=== PATIENT | female | born 1980 | race Caucasian/White ===

== ENCOUNTER 2018-06-12 16:12 | Emergency (ER) | payer OTHER, SELFPAY ==
--- NOTE | 2018-06-12 16:17 | DI.RAD.S_ITS ---
PROCEDURE: XR KNEE RT 3V INDICATIONS: pain, injury TECHNIQUE: 3 views of the right knee were acquired. COMPARISON: None. FINDINGS: Bones: No fractures or dislocations. No suspicious bony lesions. No significant patellar subluxation. Soft tissues: No joint effusion. No suspicious soft tissue calcifications. Soft tissue swelling over anterior aspect of proximal tibial shaft is seen. IMPRESSION: No gross acute fracture or dislocation. Anterior right knee soft tissue swelling. Dictated by: Alonso Flores M.D. on 06/12/2018 at 16:33 Approved by: Alonso Flores M.D. on 06/12/2018 at 16:35
[2018-06-12 17:40] VITALS: BP 140/71; PULSE 80; RESP 14; TEMP 36.8; O2SAT 100
--- NOTE | 2018-06-12 17:40 | PC.NURSE ---
Done from lobby
--- NOTE | 2018-06-12 18:07 | ED_ITS ---
HPI - Extremity Injury (Lower) <ELLIE Rowland - Last Filed: 06/12/18 20:57> General Chief Complaint: Extremity Injury, Lower Stated Complaint: RT KNEE INJURY Time Seen by Provider: 06/12/18 18:00 Source: patient Mode of arrival: ambulatory Limitations: no limitations History of Present Illness HPI Narrative: Patient presents with chief complaint of right knee pain after slipping this shower yesterday. She did not fall, but states her right knee twisted in. She felt a pop. She denies any numbness or tingling at this point time. She does complain of some pain with ambulation only. She works on the [employer] and thinks that being on her feet all day his worsening her pain. She does complain of some instability. Has used some ice taken [id number] pain medication. She has never hurt this knee before. Related Data Allergies Allergy/AdvReac Type Severity Reaction Status Date / Time No Known Drug Allergies Allergy Verified 06/12/18 16:17 Review of Systems <ELLIE Rowland - Last Filed: 06/12/18 20:57> Review of Systems GENERAL: Denies chills, fatigue, malaise, fever, sweats. HEENT: Denies sinus pain, ear pain, sore throat, difficulty swallowing, dizziness. RESPIRATORY: Denies dyspnea, cough, wheezing, hemoptysis, sputum. CARDIOVASCULAR: Denies chest pain, palpitations, orthopnea, edema, GASTROINTESTINAL: Denies nausea, vomiting, abdominal pain, diarrhea, constipation, melena. : Denies dysuria, frequency, incontinence, hematuria, urinary retention. MUSCULOSKELETAL: See HPI SKIN: Denies rash, skin lesions, or other NEUROLOGIC: Denies weakness, headache, numbness, change in speech, confusion, seizures, incoordination. PSYCHIATRIC: No concerning psychosocial issues. 12 point review of systems is negative except for those stated above Exam <ELLIE Rowland - Last Filed: 06/12/18 20:57> Narrative Exam Narrative: GENERAL: This is a well-nourished, well-developed patient, in mild distress. HEAD: Atraumatic. Normocephalic. No temporal or scalp tenderness. EYES: Pupils equal round and reactive. Extraocular motions intact. No scleral icterus. No injection or drainage. ENT: Nose without bleeding, purulent drainage or septal hematoma. Throat without erythema, tonsillar hypertrophy or exudate. Uvula midline. Airway patent. NECK: Trachea midline. No JVD or lymphadenopathy. Supple, nontender, no meningeal signs. CARDIOVASCULAR: Regular rate and rhythm without murmurs, gallops, or rubs. RESPIRATORY: Clear to auscultation. Breath sounds equal bilaterally. No wheezes , rales, or rhonchi. GASTROINTESTINAL: Abdomen soft, non-tender, nondistended. No hepato-splenomegaly , or palpable masses. No guarding. EXTREMITIES: Right knee generalized pain to palpation. No effusion noted. Right knee has negative varus and valgus stress test, negative anterior drawer negative posterior drawer test. Right knee has negative Dao sign. Does have some pain on palpation distal to right patella. Patient is able to lift and then right knee. Positive pedal pulses right foot. BACK: Nontender without deformity or crepitance. No flank tenderness. NEURO: AOx3. SKIN: No rash or erythema. No erythema ecchymosis or wounds noted right knee. Initial Vital Signs Initial Vital Signs: Vital Signs Temperature 98.2 F 06/12/18 17:40 Pulse Rate 80 06/12/18 17:40 Respiratory Rate 14 06/12/18 17:40 Blood Pressure 140/71 H 06/12/18 17:40 Pulse Oximetry 100 06/12/18 17:40 <Amie Goodwin DO - Last Filed: 06/13/18 04:21> Initial Vital Signs Initial Vital Signs: Vital Signs Temperature 98.2 F 06/12/18 17:40 Pulse Rate 80 06/12/18 17:40 Respiratory Rate 14 06/12/18 17:40 Blood Pressure 140/71 H 06/12/18 17:40 Pulse Oximetry 100 06/12/18 17:40 Course <ELLIE Rowland - Last Filed: 06/12/18 20:57> Orders Ordered: ED Orders 06/12/18 16:17 XR knee RT 3V Stat Vital Signs - 8 hr 06/12/18 17:40 06/12/18 18:12 06/12/18 18:36 Temperature 98.2 F Pulse Rate 80 77 83 Respiratory Rate 14 14 16 Blood Pressure 148/78 H Blood Pressure [Left Arm] 140/71 H 148/78 H Pulse Oximetry 100 100 99 <Amie Goodwin DO - Last Filed: 06/13/18 04:21> Orders Ordered: ED Orders 06/12/18 16:17 XR knee RT 3V Stat Vital Signs - 8 hr 06/12/18 17:40 06/12/18 18:12 06/12/18 18:36 Temperature 98.2 F Pulse Rate 80 77 83 Respiratory Rate 14 14 16 Blood Pressure 148/78 H Blood Pressure [Left Arm] 140/71 H 148/78 H Pulse Oximetry 100 100 99 [facility] - Extremity Injury (Lower) <ELLIE Rowland - Last Filed: 06/12/18 20:57> Imaging Data right knee xray: Radiologist's impression: [address] [address] XRay Report Signed Patient: Cristela Myers MR#: [id number] : 1980 Acct:[id number] Age/Sex: 37 / F Date of Service: 06/12/18 Loc: ED Accession Number: [id number] Procedure: XR knee RT 3V Ordering Provider: Olimpia Guerrero PROCEDURE: XR KNEE RT 3V INDICATIONS: pain, injury TECHNIQUE: 3 views of the right knee were acquired. COMPARISON: None. FINDINGS: Bones: No fractures or dislocations. No suspicious bony lesions. No significant patellar subluxation. Soft tissues: No joint effusion. No suspicious soft tissue calcifications. Soft tissue swelling over anterior aspect of proximal tibial shaft is seen. IMPRESSION: No gross acute fracture or dislocation. Anterior right knee soft tissue swelling. Dictated by: Alonso Flores M.D. on 06/12/2018 at 16:33 Approved by: Alonso Flores M.D. on 06/12/2018 at 16:35 [facility] Narrative Medical decision making narrative: Patient presents with chief complaint of right knee pain. X-rays negative for fracture. Patient has benign exam but possible strain or sprain given her mechanism. Offered orthopedic referral at this time, but patient declined. States she would try rest ice compression elevation combined with kdge-gsk-[id number] pain medications for a few days and follow up with her primary care if worsening or no improvement. Discussed being seen if noted numbness and tingling in the foot. Patient no questions or concerns upon discharge. She was given a work note given that her job is on her feet. Patient also declined knee immobilizer at this point time and states that she would use an Jim wrap or knee sleeve instead. Discharge Plan Departure Patient Disposition: Home, Self-Care Clinical Impression: Acute pain of right knee Discharge Date/Time: 06/12/18 18:36 Interventions: ED Discharge Assessment Last Done: 06/12/18 18:36 Instructions: How To Perform RICE (Rest, Ice, Compress, Elevate), DI for Knee Pain Activity Restrictions/Additional Instructions: Your x-ray came back negative for any acute fracture. I suggest rest, ice compression and elevation along with oskt-wvx-cyvgtvy medications as needed for pain. Follow up with primary care provider if new or worsening symptoms or no improvement. You may need further imaging, and orthopedic referral or physical therapy. Referrals: Cristela Naranjo ARNP [Primary Care Provider] - <Amie Goodwin DO - Last Filed: 06/13/18 04:21> Cosign ED Attending Antonio Attestation: I was immediately available in the department for consultation. Documentation has been reviewed. I agree with assessment and plan.
[2018-06-12 18:12] VITALS: BP 148/78; PULSE 77; RESP 14; O2SAT 100
[2018-06-12 18:36] VITALS: BP 148/78; PULSE 83; RESP 16; O2SAT 99
== END 2018-06-12 18:36 | disposition home or self-care (01) ==
PROVIDERS: Emergency Provider Nurse Practitioner Family; Family Provider Nurse Practitioner Family; PCP Nurse Practitioner Family
DX: M25.561 Pain in right knee (principal)
CPT/HCPCS: 73562; 99282; 99283

== ENCOUNTER → 2018-09-01 09:46 | Outpatient (CLI) | payer OTHER, SELFPAY ==
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
== END ==
PROVIDERS: PCP Nurse Practitioner Family; Visit Provider Nurse Practitioner Family
DX: M79.9 Soft tissue disorder, unspecified (principal)
CPT/HCPCS: 76604

== ENCOUNTER 2019-12-10 20:05 | Emergency (ER) | payer OTHER, SELFPAY ==
[2019-12-10 20:18] VITALS: BP 181/108; PULSE 94; RESP 16; TEMP 36.9; O2SAT 100
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
[2019-12-10 23:20] VITALS: BP 181/90; PULSE 88; RESP 17; O2SAT 99
== END 2019-12-10 23:20 | disposition home or self-care (01) ==
PROVIDERS: Emergency Provider Emergency Medicine; PCP Nurse Practitioner Family
DX: S92.424A Nondisplaced fracture of distal phalanx of right great toe, initial encounter for closed fracture (principal); V03.10XA Pedestrian on foot injured in collision with car, pick-up truck or van in traffic accident, initial encounter; Y99.0 Civilian activity done for income or pay
CPT/HCPCS: 73660; 99283

== ENCOUNTER → 2020-11-28 11:10 | Outpatient (CLI) | payer OTHER, SELFPAY ==
[2020-11-28 11:54] LABS: COVID19 -Nasal RAPID POSITIVE (Negative)
== END ==
PROVIDERS: PCP Nurse Practitioner Family; Visit Provider Physician Assistant
DX: U07.1 COVID-19 (principal)
CPT/HCPCS: 87635

== ENCOUNTER → 2021-01-31 12:47 | Outpatient (CLI) | payer OTHER, SELFPAY ==
[2021-01-31] MEDS: COVID-19 VACC #1, MRNA(MOD) 100 MCG/0.5 ML VIAL IM (13:00)
== END ==
PROVIDERS: PCP Nurse Practitioner Family; Visit Provider Internal Medicine
DX: Z23 Encounter for immunization (principal)
CPT/HCPCS: 0011A; 91301

== ENCOUNTER → 2021-03-01 12:57 | Outpatient (CLI) | payer OTHER, SELFPAY ==
[2021-03-01] MEDS: COVID-19 VACC #2, MRNA(MOD) 100 MCG/0.5 ML VIAL IM (13:10)
== END ==
PROVIDERS: PCP Nurse Practitioner Family; Visit Provider Internal Medicine
DX: Z23 Encounter for immunization (principal)
CPT/HCPCS: 0012A; 91301

== ENCOUNTER → 2021-10-18 12:37 | Outpatient (CLI) | payer OTHER, SELFPAY ==
[2021-10-18 13:11] LABS: Add Manual Diff / Slide Review NO; Basophils Absolute Auto 0 /uL (0-100); Basophils Percent Auto 0.4 % (0-2); Eosinophils Absolute Auto 100 /uL (0-450); Eosinophils Percent Auto 1.4 % (2-4); Hematocrit 38.5 % (36-46); Lymphocytes Absolute Auto 1400 /uL (1100-4500); Lymphocytes Percent Auto 25.6 % (25-40); Mean Corpuscular HGB Conc 33.7 % (30-36); Mean Corpuscular Hemoglobin 26.4 PG (26-34); Mean Corpuscular Volume 78.5 fL (80-100); Monocytes Absolute Auto 400 /uL (0-900); Monocytes Percent Auto 7.1 % (3-14); Neutrophils Absolute Auto 3600 /uL (1500-7000); Neutrophils Percent Auto 65.5 % (50-75); Platelet Count 206 X10^3/uL (150-400); Red Cell Distribution Width 15.2 % (11.6-14.8); White Blood Cell Count 5.5 X10^3/uL (4.5-11.0)
[2021-10-18 13:42] LABS: Erythrocyte Sedimentation Rate 6 MM/HR (0-20)
[2021-10-18 14:40] LABS: Alanine Aminotransferase 25 IU/L (<35); Albumin 4.5 g/dL (3.5-5.0); Albumin Globulin Ratio 1.6 (1.0-2.8); Alkaline Phosphatase 60 U/L (38-126); Aspartate Aminotransferase 27 IU/L (14-36); BUN Creatinine Ratio 17.1 (6-22); Bilirubin Total 0.7 mg/dL (0.2-1.3); Blood Urea Nitrogen 12 mg/dL (7-17); C-Reactive Protein Quant < 0.5 mg/dL (<1.0); Calcium 9.6 mg/dL (8.4-10.2); Carbon Dioxide 26 mmol/L (22-32); Chloride 105 mmol/L (98-107); Estimated Glomerular Filt Rate > 60.0 mL/min (>60); Globulin 2.9 g/dL (1.7-4.1); Glucose 89 mg/dL (70-100); HEMOLYSIS < 15 (0-50); Potassium 4.5 mmol/L (3.4-5.1); Sodium 140 mmol/L (137-145); Total Protein 7.4 g/dL (6.3-8.2)
[2021-10-18 14:41] LABS: Rheumatoid Factor < 8.6 IU/mL (<12.0)
[2021-10-20 16:52] LABS: ANA Screen, IFA Negative (.)
== END ==
PROVIDERS: PCP Physician Assistant; Referring Provider Physician Assistant; Visit Provider Physician Assistant
DX: R06.02 Shortness of breath (principal); M25.549 Pain in joints of unspecified hand
CPT/HCPCS: 36415; 80053; 85025; 85651; 86038; 86140; 86430

== ENCOUNTER → 2021-11-30 08:54 | Outpatient (CLI) | payer OTHER, SELFPAY ==
--- NOTE | 2021-11-30 | DI.ECHO.S_ITS ---
[place] [facility]---------+ [facility] +---------+ : : [address] : : : : [id number] : : : : Phone: [phone]+ Echocardiogram Report + + :Name: JESSICA NEWMAN Study Date: 11/30/2021 Height: 67 in : :[facility] ReadingLocation: Weight: 280 lb : : Gender: Female BSA: 2.3 m2 : :: 1980 Age: 41 yrs BP: 140/90 mmHg: :Reason For Study: Dyspnea : :Ordering Physician: : :SASHA Performed By: Prasanna Go : :Referring: VELMA AHN : + + Interpretation Summary The study quality was technically difficult. The ejection fraction is estimated to be 60-65%. Diastolic parameters suggest probable normal left ventricular diastolic function and normal filling pressures. The right ventricle is normal in size and function. No significant valvular abnormalities. Unable to estimate PASP. Procedure: A two-dimensional transthoracic echocardiogram with color flow and Doppler was performed. There is no prior echocardiogram noted for this patient. The subcostal views were difficult to obtain and are suboptimal in quality. The study quality was technically difficult. The patient was in normal sinus rhythm during the exam. Left Ventricle: The left ventricle is normal in size. There is borderline concentric left ventricular hypertrophy. Left ventricular systolic function is normal. The ejection fraction is estimated to be 60-65%. Regional wall motion abnormalities cannot be excluded due to limited visualization. Diastolic parameters suggest probable normal left ventricular diastolic function and normal filling pressures. Right Ventricle: The right ventricle is normal in size and function. Atria: Both atria are normal in size. There is no Doppler evidence for an interatrial shunt. Mitral Valve: The mitral valve leaflets appear borderline thickened, but open well. There is no mitral regurgitation noted. Aortic Valve: The aortic valve opens well. There is no aortic valve stenosis. No aortic regurgitation is present. Tricuspid Valve: The tricuspid valve is normal. There is a trace or physiologic amount of tricuspid regurgitation. Pulmonary artery pressures cannot be estimated because of the lack of a measurable TR jet velocity. Pulmonic Valve: The pulmonic valve is normal in structure and function. Great Vessels: The aortic root is normal size. The ascending aorta is normal in size. The aortic arch is normal in size. IVC not clearly visualized, but is probably normal. Pericardium/ Pleura There is no pericardial effusion. There is an anterior echo-free space consistent with a fat pad. There is no pleural effusion. MMode/2D Measurements & Calculations LVIDd: 4.0 cm LVOT diam: 1.7 cm LVIDs: 2.7 cm Ao root diam: 2.6 cm FS: 32.5 % asc Aorta Diam: 2.6 cm IVSd: 1.0 cm Ao Arch Diam (Prox Trans): 2.3 cm LVPWd: 1.0 cm LV coleman. diameter/BSA (cm/m^2): 1.7 LV sys. diameter/BSA (cm/m^2): 1.2 LA A2 area: 17.4 cm2 RA long axis: 5.0 cm LA A4 area: 22.8 cm2 LA length (vol): 5.7 cm LA vol: 59.3 ml LA vol index: 25.4 ml/m2 TAPSE_phl: 2.5 cm Doppler Measurements & Calculations Ao V2 max: 116.0 cm/sec LVOT Max Madi: 103.0 cm/sec Ao V2 mean: 90.0 cm/sec LV V1 max P.2 mmHg Ao max P.0 mmHg LV V1 VTI: 20.7 cm Ao mean P.0 mmHg JARRED(I,D): 1.8 cm2 Ao V2 VTI: 26.4 cm JARRED(V,D): 2.0 cm2 sev ratio: 0.78 JARRED indexed to BSA (cm^2/m^2): 0.76 MV E max madi: 84.4 cm/sec PA V2 max: 87.5 cm/sec MV A max madi: 54.0 cm/sec PA V2 mean: 60.5 cm/sec MV E/A: 1.6 PA mean P.0 mmHg Med Peak E' Madi: 8.2 cm/sec PA pr(Accel): 23.6 mmHg E/E' med: 10.3 Lat Peak E' Madi: 12.6 cm/sec E/E' lat: 6.7 E/e' average: 8.5 MV dec time: 0.19 sec SV(LVOT): 47.0 ml AV VR_phl: 0.89 JARRED(VTI)/BSA_phl: 0.76 MV P1/2t-pr_phl: 56.0 msec Reading Physician:12:29 PM
== END ==
PROVIDERS: PCP Physician Assistant; Referring Provider Physician Assistant; Visit Provider Physician Assistant
DX: R06.09 Other forms of dyspnea (principal)
CPT/HCPCS: 93306

== ENCOUNTER → 2021-12-05 11:00 | Outpatient (CLI) | payer OTHER, SELFPAY ==
--- NOTE | 2021-12-05 | DI.CT.S_ITS ---
PROCEDURE: CT ANGIO CHEST INDICATIONS: Shortness of breath TECHNIQUE: After the administration of intravenous contrast, 2 mm thick sections acquired from the pulmonary apices to the posterior costophrenic angles. 3-dimensional maximum intensity projection (MIP) coronal and sagittal reformats were then acquired through the thorax. For radiation dose reduction, the following was used: automated exposure control, adjustment of mA and/or kV according to patient size. COMPARISON: [facility], , CHEST, 09/01/2018, 10:05. FINDINGS: Image quality: Excellent. Pulmonary arteries: Pulmonary arteries are normal in size, and demonstrate no intraluminal filling defects to suggest central pulmonary embolism. Lungs and pleura: Lungs are clear. No pleural effusions or pneumothorax. Central and peripheral airways are patent. Mediastinum: Heart size is normal, without pericardial effusion. No mediastinal or hilar adenopathy. Thoracic aorta is normal in caliber and enhancement. Esophagus is normal in caliber, without hiatal hernia. Bones and chest wall: No suspicious bony lesions. Ribs and thoracic spine appear intact throughout. Thyroid gland is normal. No axillary or supraclavicular adenopathy. Abdomen: Visualized upper abdominal solid organs appear normal in the early arterial phase of enhancement. IMPRESSION: 1. No evidence for pulmonary embolism. 2. No acute cardiopulmonary process. Dictated by: Dorothy Mendoza M.D. on 12/05/2021 at 12:22 Approved by: Dorothy Mendoza M.D. on 12/05/2021 at 12:25
== END ==
PROVIDERS: PCP Physician Assistant; Referring Provider Physician Assistant; Visit Provider Physician Assistant
DX: R06.02 Shortness of breath (principal)
CPT/HCPCS: 71275

== ENCOUNTER 2021-12-25 00:45 | Emergency (ER) | payer OTHER, SELFPAY ==
[2021-12-25 00:48] VITALS: BP 193/111; PULSE 101; RESP 16; TEMP 36.3; O2SAT 100; BMI 43.8
--- NOTE | 2021-12-25 01:13 | ED_ITS ---
HPI - General Adult General Chief complaint: Urogenital-Female Stated complaint: kidney pain Time Seen by Provider: 12/25/21 01:02 Source: patient Mode of arrival: Ambulatory History of Present Illness HPI narrative: 41-year-old female here for evaluation of left-sided kidney pain. She states that the symptoms started rather suddenly several hours ago. Has been consistent since then. No nausea vomiting. One time had dysuria and frequency and urgency but that seems to have resolved. No change in bowel habits. She has had a kidney stone in the past but this feels somewhat different to that. No fevers. Took some ibuprofen prior to arrival without any improvement. No rashes. She states that the pain does not get worse when you touch it does get worse when she moves. Related Data Allergies Allergy/AdvReac Type Severity Reaction Status Date / Time No Known Drug Allergies Allergy Verified 12/10/19 20:22 Review of Systems Constitutional Constitutional: Reports system reviewed and no additional complaints, except as documented Cardiovascular Cardiovascular: Reports system reviewed and no additional complaints, except as documented Respiratory Respiratory: Reports system reviewed and no additional complaints, except as documented Gastrointestinal Gastrointestinal: Reports as per HPI and Reports system reviewed and no additi onal complaints, except as documented Genitourinary Genitourinary: Reports system reviewed and no additional complaints, except as documented Integumentary/Breasts Skin/Breast: Reports system reviewed and no additional complaints, except as documented Neurologic Neurologic: Reports system reviewed and no additional complaints, except as documented Hematologic/Lymphatic On Anticoagulants: No Patient History Medical History Calculus of left kidney Family History Mother Hypertension Diabetes mellitus Grandmother Ovarian cancer Father Hypertension Social History marital status: household members: spouse occupational status: employed Smoking Status: Never smoker alcohol intake: current substance use type: does not use Smoking Status: Never smoker alcohol intake frequency: holidays/special occasions only Substance Use Type: does not use Exam Initial Vital Signs Initial Vital Signs: Vital Signs Temperature 97.4 F L 12/25/21 00:48 Pulse Rate 101 H 12/25/21 00:48 Respiratory Rate 16 12/25/21 00:48 Blood Pressure 193/111 H 12/25/21 00:48 Pulse Oximetry 100 12/25/21 00:48 Const General: cooperative, comfortable and well developed HENMT Head: normal to inspection and normocephalic Resp Effort & Inspection: normal respiratory effort Auscultation: clear to auscultation bilaterally Cardio Rate: regular rate Rhythm: regular rhythm GI Inspection: normal to inspection Back/Spine/Pelvis Back: No CVA tenderness Skin General: no rashes or lesions noted Lesions: no lesions Neuro General: patient alert, patient awake and moves all extremities Extrem General: normal to inspection and capillary refill normal Psych Appearance: grossly normal and well kempt Course Orders Ordered: ED Orders 12/25/21 01:14 CT kidney ureter bladder (KUB) Stat 12/25/21 01:30 Basic Metabolic Panel Stat Complete Blood Count AUTO DIFF Stat 12/25/21 01:44 Urine Culture Stat Urine Microscopic Stat Sodium Chloride (Normal Saline 0.9%) 1,000 mls @ 500 mls/hr IV BOLUS ONE Stop: 12/25/21 03:13 Last Admin: 12/25/21 01:23 Dose: 500 mls/hr Documented by: IRINA Discontinued Medications Ketorolac Tromethamine (Ketorolac 30 Mg/Ml Vial) 30 mg IV NOW ONE Stop: 12/25/21 01:15 Last Admin: 12/25/21 01:22 Dose: 30 mg Documented by: IRINA Vital Signs Vital signs: Vital Signs - 8 hr 12/25/21 00:48 Temperature 97.4 F L Pulse Rate 101 H Respiratory Rate 16 Blood Pressure 193/111 H Pulse Oximetry 100 Medical Decision Making Lab Data Lab results reviewed: Yes I reviewed the patient's lab results. Result diagrams: 12/25/21 01:30 12/25/21 01:30 Labs: Lab Results 12/25/21 12/25/21 12/25/21 Range/Units 01:30 01:30 01:44 WBC 8.4 (4.5-11.0) X10^3/uL RBC 4.76 (4.0-5.2) X10^6/uL Hgb 12.8 (12.0-16.0) g/dL Hct 37.5 (36-46) % MCV 78.7 L (80-100) fL MCH 26.8 (26-34) PG MCHC 34.1 (30-36) % RDW 14.4 (11.6-14.8) % Plt Count 239 (150-400) X10^3/uL Neut % (Auto) 67.6 (50-75) % Lymph % (Auto) 23.4 L (25-40) % [place] % (Auto) 7.1 (3-14) % Eos % (Auto) 1.5 L (2-4) % Baso % (Auto) 0.4 (0-2) % Neut # (Auto) 5700 (5442-6953) /uL Lymph # (Auto) 2000 (8296-1270) /uL [place] # (Auto) 600 (0-900) /uL Eos # (Auto) 100 (0-450) /uL Baso # (Auto) 0 (0-100) /uL Sodium 136 L (137-145) mmol/L Potassium 3.7 (3.4-5.1) mmol/L Chloride 106 (98-107) mmol/L Carbon Dioxide 24 (22-32) mmol/L BUN 13 (7-17) mg/dL Creatinine 0.77 (0.52-1.04) mg/dL Estimated GFR > 60.0 (>60) mL/min BUN/Creatinine Ratio 16.9 (6-22) Glucose 95 (70-100) mg/dL Calcium 9.7 (8.4-10.2) mg/dL Urine RBC None seen (0-5/HPF) Urine WBC None seen (0-5/HPF) Ur Squamous Epith Cells 1-5 /hpf (0-5/HPF) Urine Bacteria None seen (None) Ur Culture Indicated? Culture not indicate Micro UA Comment * Urine Dip Bedside Urine Glucose Negative Bedside Urine Bilirubin - Negative Bedside Urine Ketone - Negative Urine Specific [place] 1.015 Bedside Urine Occult Blood +/- Bedside Urine pH 6.0 Bedside Urine Protein - Negative Bedside Urine Urobilinogen - Negative Bedside Urine Nitrite - Negative Bedside Urine Leukocytes - Negative Esterase Point of care testing: Urine Dip Bedside Urine Glucose Negative Bedside Urine Bilirubin - Negative Bedside Urine Ketone - Negative Urine Specific [place] 1.015 Bedside Urine Occult Blood +/- Bedside Urine pH 6.0 Bedside Urine Protein - Negative Bedside Urine Urobilinogen - Negative Bedside Urine Nitrite - Negative Bedside Urine Leukocytes - Negative Esterase Imaging Data CT scan - abdomen/pelvis: Radiologist's Impression: [address] [address] [address] Scan Report Signed Patient: Cristela Myers MR#: [id number] : 1980 Acct:[id number] Age/Sex: 41 / F Date of Service: 12/25/21 Loc: ED Accession Number: [id number] ?? Procedure: CT kidney ureter bladder (KUB) Ordering Provider: Angelo Mcneill D.O. PROCEDURE:? CT KIDNEY URETER BLADDER (KUB) ? INDICATIONS:? Left sided flank pain eval for stone ? TECHNIQUE:? Axial sections were acquired from the lung bases to the pubic symphysis.? Coronal and sagittal reformats were performed.? For radiation dose reduction, the following was used: ?automated exposure control, adjustment of mA and/or kV according to patient size.? ? COMPARISON:? CT, KIDNEY/ URETER/BLADDER, 03/28/2016, 5:26.? [facility], CT, ABDOMEN/PELVIS WITH CONTRAST, 09/26/2007, 8:10.? [facility], CT, CT ANGIO CHEST, 12/05/2021, 11:57. ? FINDINGS:? Image quality:? Excellent.? ? Lung bases:? Unremarkable.? ? Heart:? No significant findings. ? URINARY: Right Kidney: ? No stones or hydronephrosis.? Right Ureter:? No hydroureter.? ? Left Kidney: ? No stones or hydronephrosis. Left Ureter:? No hydroureter.? ? Bladder:? Normal wall thickness. No stones. ? ? ? ABDOMEN: Liver:? Unremarkable.? ? Gallbladder:? Unremarkable.? ? Biliary ducts:? Unremarkable.? ? Pancreas:? Unremarkable.? ? Spleen:? Unremarkable.? ? Adrenal Glands:? Unremarkable.? ? ? Stomach and Bowel:? Stomach, small bowel loops, and colon are unremarkable.? Diverticulosis without diverticulitis. Peritoneum:? No abnormal intraperitoneal fluid.? No free air.? ? Ventral Wall: ? No hernia.? Abdominal Nodes:? No enlarged retroperitoneal or mesenteric lymph nodes.? Vessels:? Aorta and inferior vena cava are normal in size.? ? PELVIS: Pelvic Organs:? Uterus is normal.? There is air in vagina. ? Ovaries unremarkable.? No pathological free-fluid in the cul-de-sac.? Pelvic Nodes: Unremarkable. Miscellaneous: No inguinal hernias are seen. ? ? ? Bones:? Unremarkable. ? IMPRESSION:? ? 1. No acute abnormalities in abdomen or pelvis.? No renal stone or hydronephrosis. 2. Diverticulosis without diverticulitis.? Dictated by: Dorothy Mendoza M.D. on 12/25/2021 at 2:21 ? ? Approved by: Dorothy Mendoza M.D. on 12/25/2021 at 2:30?? MDM Narrative Medical decision making narrative: CT scan of the abdomen does not show any signs of acute pathology. There is no signs of kidney stone. No signs of bowel obstruction. Her urinalysis is unremarkable. Low suspicion for pyelonephritis. Unsure the exact etiology of patient's symptoms. She does not have any skin changes over the area that are concerning for zoster. No indication for antibiotics. No indication for further workup here in the ER. I did discuss with her the lack of a definitive diagnosis and we discussed return precautions and follow-up instructions. She e xpressed understanding and agreement. Discharge Plan Departure Patient Disposition: Home Clinical Impression: Acute left flank pain Activity Restrictions/Additional Instructions: The CT scan today did not show any signs of a kidney stone or any other surgical or infectious issue. Your labs were also reassuring. Urine did not show any signs of infection. Unfortunately do not have a specific diagnosis for your discomfort but it does not appear to be an emergent condition. This is reassuring. Contact your primary doctor for follow-up and return to the emergency department for any new or worsening symptoms. Referrals: Pat Weir PA-C [Primary Care Provider] -
--- NOTE | 2021-12-25 01:14 | DI.CT.S_ITS ---
PROCEDURE: CT KIDNEY URETER BLADDER (KUB) INDICATIONS: Left sided flank pain eval for stone TECHNIQUE: Axial sections were acquired from the lung bases to the pubic symphysis. Coronal and sagittal reformats were performed. For radiation dose reduction, the following was used: automated exposure control, adjustment of mA and/or kV according to patient size. COMPARISON: CT, KIDNEY/ URETER/BLADDER, 03/28/2016, 5:26. [facility], CT, ABDOMEN/PELVIS WITH CONTRAST, 09/26/2007, 8:10. [facility], CT, CT ANGIO CHEST, 12/05/2021, 11:57. FINDINGS: Image quality: Excellent. Lung bases: Unremarkable. Heart: No significant findings. URINARY: Right Kidney: No stones or hydronephrosis. Right Ureter: No hydroureter. Left Kidney: No stones or hydronephrosis. Left Ureter: No hydroureter. Bladder: Normal wall thickness. No stones. ABDOMEN: Liver: Unremarkable. Gallbladder: Unremarkable. Biliary ducts: Unremarkable. Pancreas: Unremarkable. Spleen: Unremarkable. Adrenal Glands: Unremarkable. Stomach and Bowel: Stomach, small bowel loops, and colon are unremarkable. Diverticulosis without diverticulitis. Peritoneum: No abnormal intraperitoneal fluid. No free air. Ventral Wall: No hernia. Abdominal Nodes: No enlarged retroperitoneal or mesenteric lymph nodes. Vessels: Aorta and inferior vena cava are normal in size. PELVIS: Pelvic Organs: Uterus is normal. There is air in vagina. Ovaries unremarkable. No pathological free-fluid in the cul-de-sac. Pelvic Nodes: Unremarkable. Miscellaneous: No inguinal hernias are seen. Bones: Unremarkable. IMPRESSION: 1. No acute abnormalities in abdomen or pelvis. No renal stone or hydronephrosis. 2. Diverticulosis without diverticulitis. Dictated by: Dorothy Mendoza M.D. on 12/25/2021 at 2:21 Approved by: Dorothy Mendoza M.D. on 12/25/2021 at 2:30
[2021-12-25] MEDS: KETOROLAC 30 MG/ML VIAL IV (01:22)
[2021-12-25] MEDS: SODIUM CHLORIDE 0.9% 1,000 ML 500 ML IV (01:23)
[2021-12-25 01:45] LABS: Add Manual Diff / Slide Review NO; Basophils Absolute Auto 0 /uL (0-100); Basophils Percent Auto 0.4 % (0-2); Eosinophils Absolute Auto 100 /uL (0-450); Eosinophils Percent Auto 1.5 % (2-4); Hematocrit 37.5 % (36-46); Hemoglobin 12.8 g/dL (12.0-16.0); Lymphocytes Absolute Auto 2000 /uL (1100-4500); Lymphocytes Percent Auto 23.4 % (25-40); Mean Corpuscular HGB Conc 34.1 % (30-36); Mean Corpuscular Hemoglobin 26.8 PG (26-34); Mean Corpuscular Volume 78.7 fL (80-100); Monocytes Absolute Auto 600 /uL (0-900); Monocytes Percent Auto 7.1 % (3-14); Neutrophils Absolute Auto 5700 /uL (1500-7000); Neutrophils Percent Auto 67.6 % (50-75); Platelet Count 239 X10^3/uL (150-400); Red Blood Cell Count 4.76 X10^6/uL (4.0-5.2); Red Cell Distribution Width 14.4 % (11.6-14.8); White Blood Cell Count 8.4 X10^3/uL (4.5-11.0)
[2021-12-25 01:50] LABS: BUN Creatinine Ratio 16.9 (6-22); Blood Urea Nitrogen 13 mg/dL (7-17); Calcium 9.7 mg/dL (8.4-10.2); Carbon Dioxide 24 mmol/L (22-32); Chloride 106 mmol/L (98-107); Estimated Glomerular Filt Rate > 60.0 mL/min (>60); Glucose 95 mg/dL (70-100); HEMOLYSIS < 15 (0-50); Potassium 3.7 mmol/L (3.4-5.1); Sodium 136 mmol/L (137-145)
[2021-12-25 02:13] LABS: RBC Urine None Seen (0-5/HPF); Squamous Epithelial Cell Urine 1-5 /HPF (0-5/HPF); WBC Urine None Seen (0-5/HPF)
[2021-12-25 02:14] LABS: Bacteria Urine None Seen
[2021-12-25 03:03] VITALS: BP 142/68; PULSE 80; RESP 16; O2SAT 100
== END 2021-12-25 03:04 | disposition home or self-care (01) ==
PROVIDERS: Emergency Provider Emergency Medicine; PCP Physician Assistant
DX: R10.9 Unspecified abdominal pain (principal)
CPT/HCPCS: 36415; 74176; 80048; 81003; 81015; 85025; 87086; 96361; 96374; 99284; J1885

== ENCOUNTER → 2022-10-11 12:26 | Outpatient (CLI) | payer OTHER, SELFPAY ==
[2022-10-11 12:58] LABS: Add Manual Diff / Slide Review NO; Basophils Absolute Auto 0 /uL (0-100); Basophils Percent Auto 0.3 % (0-2); Eosinophils Absolute Auto 100 /uL (0-450); Eosinophils Percent Auto 0.7 % (2-4); Hematocrit 40.5 % (36-46); Hemoglobin 13.8 g/dL (12.0-16.0); Lymphocytes Absolute Auto 1300 /uL (1100-4500); Lymphocytes Percent Auto 15.2 % (25-40); Mean Corpuscular Hemoglobin 27.1 PG (26-34); Mean Corpuscular Volume 79.8 fL (80-100); Monocytes Absolute Auto 500 /uL (0-900); Monocytes Percent Auto 6.2 % (3-14); Neutrophils Absolute Auto 6500 /uL (1500-7000); Neutrophils Percent Auto 77.6 % (50-75); Platelet Count 231 X10^3/uL (150-400); Red Blood Cell Count 5.08 X10^6/uL (4.0-5.2); Red Cell Distribution Width 13.8 % (11.6-14.8); White Blood Cell Count 8.4 X10^3/uL (4.5-11.0)
[2022-10-11 13:14] LABS: Alanine Aminotransferase 28 IU/L (<35); Albumin 4.4 g/dL (3.5-5.0); Albumin Globulin Ratio 1.4 (1.0-2.8); Alkaline Phosphatase 67 U/L (38-126); Aspartate Aminotransferase 33 IU/L (14-36); BUN Creatinine Ratio 18.6 (6-22); Bilirubin Total 0.8 mg/dL (0.2-1.3); Blood Urea Nitrogen 11 mg/dL (7-17); Calcium 9.1 mg/dL (8.4-10.2); Carbon Dioxide 24 mmol/L (22-32); Chloride 106 mmol/L (98-107); Cholesterol 210 mg/dL (140-199); Estimated Glomerular Filt Rate > 60 mL/min (>60); Globulin 3.2 g/dL (1.7-4.1); Glucose 94 mg/dL (70-100); HDL Cholesterol 67 mg/dL (40-60); HEMOLYSIS 33 (0-50); LDL Cholesterol Calculated 115 mg/dL (<100); Potassium 4.1 mmol/L (3.4-5.1); Sodium 138 mmol/L (137-145); Total Protein 7.6 g/dL (6.3-8.2); Triglycerides 139 mg/dL (35-150)
[2022-10-11 14:20] LABS: Folate 9.8 ng/mL (2.76-20.0); Vitamin B12 305 pg/mL (239-931)
[2022-10-11 14:47] LABS: Vitamin D 25 Hydroxy (D3) 24.6 ng/mL (30.0-100.0)
[2022-10-11 15:25] LABS: TSH w/ Reflex to FT4 2.74 uIU/mL (0.47-4.68)
== END ==
PROVIDERS: PCP Family Medicine; Referring Provider Family Medicine; Visit Provider Family Medicine
DX: R06.02 Shortness of breath (principal); R03.0 Elevated blood-pressure reading, without diagnosis of hypertension; B94.8 Sequelae of other specified infectious and parasitic diseases; Z13.29 Encounter for screening for other suspected endocrine disorder; Z79.899 Other long term (current) drug therapy
CPT/HCPCS: 36415; 80053; 80061; 82306; 82607; 82746; 84443; 85025

== ENCOUNTER → 2023-03-20 11:08 | Outpatient (CLI) | payer OTHER, SELFPAY ==
[2023-03-20 16:59] LABS: Vitamin D 25 Hydroxy (D3) 27.9 ng/mL (30.0-100.0)
== END ==
PROVIDERS: PCP Nurse Practitioner Family; Referring Provider Nurse Practitioner Family; Visit Provider Nurse Practitioner Family
DX: E55.9 Vitamin D deficiency, unspecified (principal)
CPT/HCPCS: 36415; 82306

== ENCOUNTER → 2023-08-28 14:22 | Outpatient (CLI) | payer OTHER, SELFPAY ==
[2023-08-28 15:39] LABS: Alanine Aminotransferase 20 IU/L (<35); Albumin 4.4 g/dL (3.5-5.0); Albumin Globulin Ratio 1.5 (1.0-2.8); Alkaline Phosphatase 45 U/L (38-126); Aspartate Aminotransferase 24 IU/L (14-36); BUN Creatinine Ratio 14.1 (6-22); Bilirubin Total 0.5 mg/dL (0.2-1.3); Blood Urea Nitrogen 9 mg/dL (7-17); Calcium 9.6 mg/dL (8.4-10.2); Carbon Dioxide 21 mmol/L (22-32); Chloride 106 mmol/L (98-107); Estimated Glomerular Filt Rate > 60 mL/min (>60); Globulin 2.9 g/dL (1.7-4.1); Glucose 101 mg/dL (70-100); HEMOLYSIS < 15 (0-50); Sodium 136 mmol/L (137-145); Total Protein 7.3 g/dL (6.3-8.2)
[2023-08-28 18:04] LABS: Vitamin D 25 Hydroxy (D3) 52.3 ng/mL (30.0-100.0)
[2023-08-29 14:40] LABS: Cholesterol HDL Ratio 2.7 ratio (0.0-4.4); Cholesterol,Total 170 mg/dL (100-199); HDL Cholesterol 64 mg/dL (>39); LDL Cholesterol Cal 87 mg/dL (0-99); Triglycerides 105 mg/dL (0-149); VLDL Cholesterol Cal 19 mg/dL (5-40)
== END ==
PROVIDERS: PCP Nurse Practitioner Family; Referring Provider Nurse Practitioner Family; Visit Provider Nurse Practitioner Family
DX: E55.9 Vitamin D deficiency, unspecified (principal); E78.5 Hyperlipidemia, unspecified
CPT/HCPCS: 36415; 80053; 80061; 82306

== ENCOUNTER → 2023-12-26 14:55 | Outpatient (CLI) | payer OTHER, SELFPAY | PROVIDERS: PCP Nurse Practitioner Family; Referring Provider Nurse Practitioner Family; Visit Provider Nurse Practitioner Family | DX: R06.00 Dyspnea, unspecified (principal) | CPT/HCPCS: 94060; 94726; 94729 ==

== ENCOUNTER 2024-04-09 17:55 | Emergency (ER) | payer OTHER, SELFPAY ==
[2024-04-09 18:11] VITALS: BP 159/93; PULSE 91; RESP 18; TEMP 36.9; O2SAT 100; BMI 39.5
[2024-04-09 19:20] VITALS: BP 150/83; PULSE 91; RESP 18; O2SAT 100
--- NOTE | 2024-04-09 19:47 | ED_ITS ---
HPI - Chest Pain <Jimmy Hendrix PA-C - Last Filed: 04/10/24 11:12> General Chief Complaint: Chest Pain Stated Complaint: sharp px left rib cage area Time Seen by Provider: 04/09/24 19:13 Source: patient Mode of arrival: Ambulatory Limitations: no limitations History of Present Illness HPI narrative: This is a 43-year-old female presents emergency department due to liver pain onset 2 days ago. She states that she had not recall any accidents that would start the left rib pain. Denies any significant shortness of breath although she does state that she was breathing set of the shower secondary to the pain. States that she was had kidney stones on that side in the past but this feels different. Denies any significant chest pain, nausea, vomiting, fevers, or any other concerning signs or symptoms. Related Data Allergies Allergy/AdvReac Type Severity Reaction Status Date / Time No Known Drug Allergies Allergy Verified 12/10/19 20:22 Review of Systems <Jimmy Hendrix PA-C - Last Filed: 04/10/24 11:12> Review of Systems Narrative: GENERAL: Denies chills, fatigue, malaise, fever, sweats. HEENT: Denies sinus pain, ear pain, sore throat, difficulty swallowing, dizziness. RESPIRATORY: Denies dyspnea, cough, wheezing, hemoptysis, sputum. CARDIOVASCULAR: Reports left rib pain Denies chest pain, palpitations, orthopnea, edema, GASTROINTESTINAL: Denies nausea, vomiting, abdominal pain, diarrhea, c onstipation, melena. : Denies dysuria, frequency, incontinence, hematuria, urinary retention. MUSCULOSKELETAL: denies weakness, joint pain, or bony pain SKIN: Denies rash, skin lesions, or other NEUROLOGIC: Denies weakness, headache, numbness, change in speech, confusion, seizures, incoordination. PSYCHIATRIC: No concerning psychosocial issues. 12 point review of systems is negative except for those stated above Patient History <Jimmy Hendrix PA-C - Last Filed: 04/10/24 11:12> Medical History Calculus of left kidney Family History Mother Hypertension Diabetes mellitus Grandmother Ovarian cancer Father Hypertension Social History marital status: household members: spouse occupational status: employed Smoking Status: Never smoker alcohol intake: current substance use type: does not use Smoking Status: Never smoker alcohol intake frequency: holidays/special occasions only Substance Use Type: does not use Exam <Jimmy Hendrix PA-C - Last Filed: 04/10/24 11:12> Narrative Exam Narrative: GENERAL: Well-developed patient, in mild distress. HEAD: Atraumatic. Normocephalic. EYES: Pupils equal round and reactive. Extraocular motions intact. No scleral icterus. No injection or drainage. ENT: Nose without bleeding, purulent drainage. Throat without erythema, tonsillar hypertrophy or exudate. Airway patent. NECK: Trachea midline. Non tender EXTREMITIES: No edema or joint tenderness. NEURO: AOx3. SKIN: No rash or erythema of visible areas CARDIOVASCULAR: Regular rate and rhythm without murmurs, gallops, or rubs. RESPIRATORY: Clear to auscultation. Breath sounds equal bilaterally. No wheezes, rales, or rhonchi. No tenderness to palpation to the left ribs GASTROINTESTINAL: Abdomen soft, non-tender, nondistended. BACK: Nontender without deformity or crepitance. No flank tenderness. Initial Vital Signs Initial Vital Signs: Vital Signs Temperature 98.4 F 04/09/24 18:11 Pulse Rate 91 H 04/09/24 18:11 Respiratory Rate 18 04/09/24 18:11 Blood Pressure 159/93 H 04/09/24 18:11 Pulse Oximetry 100 04/09/24 18:11 Oxygen Delivery Method Room Air 04/09/24 18:11 <Olimpia Sneed MD - Last Filed: 04/11/24 01:31> Initial Vital Signs Initial Vital Signs: Vital Signs Temperature 98.4 F 04/09/24 18:11 Pulse Rate 91 H 04/09/24 18:11 Respiratory Rate 18 04/09/24 18:11 Blood Pressure 159/93 H 04/09/24 18:11 Pulse Oximetry 100 04/09/24 18:11 Oxygen Delivery Method Room Air 04/09/24 18:11 Course <Jimmy Hendrix PA-C - Last Filed: 04/10/24 11:12> Orders Ordered: Discontinued Medications Ondansetron HCl (Ondansetron 4 Mg Odt) 4 mg SL NOW PRN PRN Reason: Nausea And Vomiting Ondansetron HCl (Ondansetron 4 Mg/2 Ml Inj) 4 mg IV NOW PRN PRN Reason: Nausea And Vomiting Vital Signs Vital signs: Vital Signs - 8 hr 04/09/24 18:11 04/09/24 19:20 Temperature 98.4 F Pulse Rate 91 H 91 H Respiratory Rate 18 18 Blood Pressure 159/93 H 150/83 H Pulse Oximetry 100 100 Oxygen Delivery Method Room Air Room Air <Olimpia Sneed MD - Last Filed: 04/11/24 01:31> Orders Ordered: Discontinued Medications Ondansetron HCl (Ondansetron 4 Mg Odt) 4 mg SL NOW PRN PRN Reason: Nausea And Vomiting Ondansetron HCl (Ondansetron 4 Mg/2 Ml Inj) 4 mg IV NOW PRN PRN Reason: Nausea And Vomiting Vital Signs Vital signs: Vital Signs - 8 hr 04/09/24 18:11 04/09/24 19:20 Temperature 98.4 F Pulse Rate 91 H 91 H Respiratory Rate 18 18 Blood Pressure 159/93 H 150/83 H Pulse Oximetry 100 100 Oxygen Delivery Method Room Air Room Air MDM - Chest Pain <Jimmy Hendrix PA-C - Last Filed: 04/10/24 11:12> Lab Data Labs: Point of Care Testing Test Results Negative Urine Dip Bedside Urine Glucose Negative Bedside Urine Bilirubin - Negative Bedside Urine Ketone - Negative Urine Specific [place] 1.010 Bedside Urine Occult Blood - Negative Bedside Urine pH 6.0 Bedside Urine Protein - Negative Bedside Urine Urobilinogen - Negative Bedside Urine Nitrite - Negative Bedside Urine Leukocytes - Negative Esterase MDM Narrative Medical decision making narrative: ED course: This is a 43-year-old female presents to the emergency department complaining of suspected chondral chondritis. She reports some left rib pain. No trauma to the area. Left rib x-ray as well as lung x-ray ordered which showed no abnormalities. Patient does not report any chest pain, nausea, vomiting, left arm pain, or any other concerns for ACS. Pain seems to be higher than the kidney area and no CVA tenderness and no blood in the urine and low concern for any kind of kidney stone. Recommended supportive care. CC: Left rib pain Complicating co-morbidities: None Data collected from: Previous notes Medical records reviewed: Patient was seen 2 years ago due to left-sided kidney pain. History of left kidney stone. CT KUB ordered which showed diverticulosis. Patient was discharged. Differential considered, but not limited to: Kidney stone, costochondritis, rib contusion, fracture Exam documented above, pertinent findings include: No tenderness to palpation of the CVA area Lab Test results independently reviewed as above. Pertinent findings: UA unremarkable Imaging studies independently reviewed: Rib and chest x-ray negative Scores Used: None MIPS Elements: None Consultations: None Treatments: None Re-evaluations: None Discussion: Discussed plan with the patient was comfortable with the plan Diagnosis: Costochondritis Disposition: see below, along with detailed discharge instructions that have been reviewed with patient as well as indications for ED re-evaluation and additional outpatient follow up <Olimpia Sneed MD - Last Filed: 04/11/24 01:31> Lab Data Labs: Point of Care Testing Test Results Negative Urine Dip Bedside Urine Glucose Negative Bedside Urine Bilirubin - Negative Bedside Urine Ketone - Negative Urine Specific [place] 1.010 Bedside Urine Occult Blood - Negative Bedside Urine pH 6.0 Bedside Urine Protein - Negative Bedside Urine Urobilinogen - Negative Bedside Urine Nitrite - Negative Bedside Urine Leukocytes - Negative Esterase Discharge Plan Departure Patient Disposition: Home Clinical Impression: Costochondritis Activity Restrictions/Additional Instructions: Thank you for coming to the [facility] Emergency Department today. As we discussed your chest x-ray and rib x-ray showed no abnormal findings. There was no evidence of any kind of lung injury, rib injury, or any other concerning signs or findings. I suspect this is mild inflammation of the intercostal muscles between your ribs. Please take ibuprofen as needed for the discomfort. Please return to the emergency department if you develop any significant chest pain, shortness of breath, or any other concerning signs or symptoms. I hope you feel better soon. Please follow up with your primary care provider within a week if your symptoms continue. If you do not have a primary care provider please contact the [facility] Resource line at [phone]. They will ask some questions about your medical history and help you get set up with a provider in the community. Referrals: Linda Renee RN [Primary Care Provider] - Stand Alone Forms: Patient Portal/API ED Sign-out <Olimpia Sneed MD - Last Filed: 04/11/24 01:31> Cosign ED Attending Cosignature Attestation: I did not see this patient. I was available all times for consultation.
--- NOTE | 2024-04-09 20:04 | DI.RAD.S_ITS ---
PROCEDURE: XR RIBS LT MIN 3V W CXR1V INDICATIONS: L rib pain TECHNIQUE: 2 views of the ribs were acquired, along with a single view chest. COMPARISON: None. FINDINGS: Surgical changes and devices: None. Bones and chest wall: No fractures or dislocations. No suspicious bony lesions. Overlying soft tissues appear unremarkable. Lungs and pleura: No pleural effusions or pneumothorax. Lungs appear clear. Mediastinum: Mediastinal contours appear normal. Heart size is normal. IMPRESSION: No displaced rib fracture or pneumothorax. Dictated by: Alonso Flores M.D. on 04/09/2024 at 21:25 Approved by: Alonso Flores M.D. on 04/09/2024 at 21:26
[2024-04-09 21:35] VITALS: BP 134/84; PULSE 68; RESP 14; O2SAT 98
== END 2024-04-09 21:36 | disposition home or self-care (01) ==
PROVIDERS: Emergency Provider Physician Assistant Medical; PCP Nurse Practitioner Family
DX: M94.0 Chondrocostal junction syndrome [Tietze] (principal)
CPT/HCPCS: 71101; 81003; 81025; 99283

== ENCOUNTER → 2025-03-09 11:28 | Outpatient (CLI) | payer OTHER, SELFPAY ==
[2025-03-09 12:10] LABS: Add Manual Diff / Slide Review NO; Basophils Absolute Auto 100 /uL (0-100); Basophils Percent Auto 0.8 % (0-2); Eosinophils Absolute Auto 100 /uL (0-450); Eosinophils Percent Auto 1.1 % (2-4); Hematocrit 39.3 % (36-46); Hemoglobin 13.8 g/dL (12.0-16.0); Lymphocytes Absolute Auto 1500 /uL (1100-4500); Lymphocytes Percent Auto 20.4 % (25-40); Mean Corpuscular Hemoglobin 28.8 PG (26-34); Mean Corpuscular Volume 82.1 fL (80-100); Monocytes Absolute Auto 500 /uL (0-900); Monocytes Percent Auto 6.2 % (3-14); Neutrophils Absolute Auto 5200 /uL (1500-7000); Neutrophils Percent Auto 71.5 % (50-75); Platelet Count 189 X10^3/uL (150-400); Red Blood Cell Count 4.79 X10^6/uL (4.0-5.2); Red Cell Distribution Width 13.7 % (11.6-14.8); White Blood Cell Count 7.3 X10^3/uL (4.5-11.0)
[2025-03-09 12:50] LABS: Alanine Aminotransferase 34 IU/L (<35); Albumin 4.4 g/dL (3.5-5.0); Albumin Globulin Ratio 1.8 (1.0-2.8); Alkaline Phosphatase 54 U/L (38-126); Aspartate Aminotransferase 37 IU/L (14-36); BUN Creatinine Ratio 12.7 (6-22); Blood Urea Nitrogen 9 mg/dL (7-17); Calcium 9.2 mg/dL (8.4-10.2); Carbon Dioxide 23 mmol/L (22-32); Chloride 105 mmol/L (98-107); Estimated Glomerular Filt Rate > 60 mL/min (>60); Globulin 2.5 g/dL (1.7-4.1); Glucose 93 mg/dL (70-99); HEMOLYSIS < 15 (0-50); Potassium 4.1 mmol/L (3.4-5.1); Sodium 136 mmol/L (137-145); Total Protein 6.9 g/dL (6.3-8.2)
[2025-03-09 13:05] LABS: Vitamin D 25 Hydroxy (D3) 44.3 ng/mL (30.0-100.0)
== END ==
PROVIDERS: PCP Student in an Organized Health Care Education/Training Program
DX: I10 Essential (primary) hypertension (principal); E78.5 Hyperlipidemia, unspecified; E55.9 Vitamin D deficiency, unspecified; F32.A Depression, unspecified; E66.01 Morbid (severe) obesity due to excess calories
CPT/HCPCS: 36415; 80053; 80061; 82306; 85025